=== PATIENT | female | born 1960 | race Caucasian/White ===

== ENCOUNTER 2020-05-01 17:21 | Emergency (ER) | payer SELFPAY ==
[2020-05-01] MEDS ORDERED: methylPREDNISolone SODIUM SUC 125 MG/2 ML VIAL IV ONE (17:29)
[2020-05-01] MEDS ORDERED: FAMOTIDINE IV PREMIX 20 MG in PREMIX BAG 1 BAG IVPB ONE (17:29)
[2020-05-01] MEDS ORDERED: diphenhydrAMINE HCL 50 MG/ML VIAL IV STA (17:29)
--- NOTE | 2020-05-01 17:34 | ED.PDOC ---
History of Present Illness - General Chief Complaint: Bite: Animal/Insect/Human Time Seen by Provider: 05/01/20 17:29 Source: patient, RN notes reviewed, Vital Signs reviewed Additional Information: 59-year-old female, presents to the ER because of, patient has a history of hypertension and she was recently put on lisinopril. Patient denies fever chest pain denies any nausea vomiting denies any other complaints and no other known allergic reaction Patient arrived POV does not be very stressed unable to speak in long complete sentences - History of Present Illness Timing/Duration: getting worse Severity: moderate Improving Factors: nothing Worsening Factors: nothing Associated Symptoms: denies symptoms Allergies/Adverse Reactions: Allergies SIMRAN Inhibitors Allergy (Verified 05/01/20 17:42) Metronidazole Allergy (Verified 08/23/15 11:48) Other Rash and mouth ulcers Home Medications: Ambulatory Orders Cetirizine HCl [ZyrTEC] 10 mg PO DAILY #20 tab 05/01/20 Epinephrine [Epipen 2-Aroldo] 0.3 mg IJ ONCE #1 ml 05/01/20 Lisinopril 20 mg PO DAILY 05/01/20 Methylprednisolone [Medrol Dose Aroldo] 4 mg PO DAILY 6 Days #21 tab 05/01/20 Review of Systems - Review of Systems Constitutional: States: no symptoms reported EENTM: States: no symptoms reported Respiratory: States: no symptoms reported Cardiology: States: no symptoms reported Gastrointestinal/Abdominal: States: no symptoms reported Genitourinary: States: no symptoms reported Musculoskeletal: States: no symptoms reported Skin: States: no symptoms reported Neurological: States: no symptoms reported Endocrine: States: no symptoms reported Hematologic/Lymphatic: States: no symptoms reported Past Medical History (General) - Patient Medical History Hx Seizures: No Hx Stroke: No Hx Dementia: No Hx Asthma: No Hx of COPD: No Hx Cardiac Disorders: No Hx Congestive Heart Failure: No Hx Pacemaker: No Hx Hypertension: Yes Hx Thyroid Disease: No Hx Diabetes: No Hx Gastroesophageal Reflux: No - Hx diverticulitis Hx Renal Disease: No Hx of HIV: No Hx MRSA: Yes - Wound 2016 MRSA Source:: Wound - Vaccination History Hx Tetanus, Diphtheria Vaccination: No Hx Influenza Vaccination: No Hx Pneumococcal Vaccination: No - Social History Hx Tobacco Use: No Hx Chewing Tobacco Use: No Hx Alcohol Use: No Hx Substance Use: No Hx Depression: No Family Medical History - Family History Mother Family History: Unknown Living Status: Hx Family Hypertension: Yes Hx Family Stroke: Yes Physical Exam - Physical Exam General Appearance: Alert, Well Developed, Well Groomed, Well Hydrated, Well Nourished Eye Exam: bilateral normal Ears, Nose, Throat: hearing grossly normal, normal ENT inspection, other - isolated upper lip swellling, no uvular shift, no drooling, and no stridor and no tongue swelling Neck: non-tender, full range of motion Respiratory: chest non-tender, lungs clear, normal breath sounds, no respiratory distress, no accessory muscle use Cardiovascular/Chest: normal peripheral pulses, regular rate, rhythm, no edema, no gallop, no JVD, no murmur Peripheral Pulses: radial,right: 2+, radial,left: 2+ Gastrointestinal/Abdominal: normal bowel sounds, non tender, soft, no organomegaly, no pulsatile mass Back Exam: normal inspection, no CVA tenderness, no vertebral tenderness Extremity: normal range of motion, non-tender, normal inspection, no pedal edema, no calf tenderness 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 Patient was recently put on lisinopril which is a SIMRAN inhibitor, has been known to cause angioedema, patient did not have any stridor no uvular swelling no tongue swelling no respiratory distress no nausea no vomiting, patient feels fine she did receive steroids Benadryl and epinephrine, patient was told that she needs to stop taking the lisinopril and she is to follow with primary care physician for change her to a proper medication. Patient will be discharged home Medrol Aroldo zyrtec and an EpiPen 05/01/20 20:04 05/01/20 20:07 No evidence of respiratory distress prior to discharge 05/01/20 20:08 patient was observed in the ER for longer than 2 hours without evidence of rebound Departure - Departure Clinical Impression: Anaphylaxis Qualifiers: Encounter type: initial encounter Qualified Code(s): T78.2XXA - Anaphylactic shock, unspecified, initial encounter Angioedema Qualifiers: Encounter type: initial encounter Qualified Code(s): T78.3XXA - Angioneurotic edema, initial encounter Disposition: Discharge to Home or Self Care Condition: Fair Departure Forms: ED Discharge - Pt. Copy, ED Discharge - Work Release, Patient Portal Self Enrollment Instructions: DI for Animal Bites, Angioedema (DC) Diet: resume usual diet Referrals: Coy Kowalski MD [Primary Care Provider] - 1-2 Weeks Prescriptions: Epinephrine [Epipen 2-Aroldo] 0.3 mg IJ ONCE #1 ml Methylprednisolone [Medrol Dose Aroldo] 4 mg PO DAILY 6 Days #21 tab Cetirizine HCl [ZyrTEC] 10 mg PO DAILY #20 tab Home Medications: Ambulatory Orders Cetirizine HCl [ZyrTEC] 10 mg PO DAILY #20 tab 05/01/20 Epinephrine [Epipen 2-Aroldo] 0.3 mg IJ ONCE #1 ml 05/01/20 Lisinopril 20 mg PO DAILY 05/01/20 Methylprednisolone [Medrol Dose Aroldo] 4 mg PO DAILY 6 Days #21 tab 05/01/20 Additional Instructions: Or stop taking the lisinopril follow-up with your doctor soon as possible for change in your blood pressure medication
[2020-05-01] MEDS ORDERED: EPINEPHrine HCL AMP 1 MG/ML AMP SUBCU ONE (18:23)
[2020-05-01 21:18] VITALS: BP 146/97; TEMP 97.8; O2SAT 98
== END 2020-05-01 21:13 | disposition home or self-care (01) ==
LOC: ER 17:21
DX: T88.6XXA Anaphylactic reaction due to adverse effect of correct drug or medicament properly administered, initial encounter (principal); T46.4X5A Adverse effect of angiotensin-converting-enzyme inhibitors, initial encounter; T78.3XXA Angioneurotic edema, initial encounter; I10 Essential (primary) hypertension; Z79.899 Other long term (current) drug therapy; Z88.8 Allergy status to other drugs, medicaments and biological substances
CPT/HCPCS: J1200; J2930; J3490

== ENCOUNTER 2020-05-02 00:12 | Emergency (ER) | payer SELFPAY ==
[2020-05-02] MEDS ORDERED: methylPREDNISolone SODIUM SUC 125 MG/2 ML VIAL IV ONE (00:20)
--- NOTE | 2020-05-02 00:24 | ED.PDOC ---
History of Present Illness - General Chief Complaint: General Stated Complaint: lower lip swelling Time Seen by Provider: 05/02/20 00:19 Source: patient, RN notes reviewed, Vital Signs reviewed Additional Information: 59 year old with history of hypertension patient was seen here earlier because of allergy reaction to lisinopril, patient developed angioedema of the upper lip after taking lisinopril. The patient did not have any stridor no drooling no trismus no difficulty distress no tongue swelling. Earlier got epinephrine, steroids, when patient was discharged home her upper leave was getting better she was told to follow-up with her PCP for changing her blood pressure paitent returns to the ER now because of swelling of the lower lip - History of Present Illness Timing/Duration: getting worse Severity: moderate Improving Factors: other - medications Worsening Factors: nothing Associated Symptoms: denies symptoms Allergies/Adverse Reactions: Allergies SIMRAN Inhibitors Allergy (Verified 05/01/20 17:42) Metronidazole Allergy (Verified 08/23/15 11:48) Other Rash and mouth ulcers Home Medications: Ambulatory Orders Cetirizine HCl [ZyrTEC] 10 mg PO DAILY #20 tab 05/01/20 Epinephrine [Epipen 2-Aroldo] 0.3 mg IJ ONCE #1 ml 05/01/20 Lisinopril 20 mg PO DAILY 05/01/20 Methylprednisolone [Medrol Dose Aroldo] 4 mg PO DAILY 6 Days #21 tab 05/01/20 Review of Systems - Review of Systems Constitutional: States: no symptoms reported EENTM: States: no symptoms reported Respiratory: States: no symptoms reported Cardiology: States: no symptoms reported Gastrointestinal/Abdominal: States: no symptoms reported Genitourinary: States: no symptoms reported Musculoskeletal: States: no symptoms reported Skin: States: no symptoms reported Neurological: States: no symptoms reported Endocrine: States: no symptoms reported Hematologic/Lymphatic: States: no symptoms reported Past Medical History (General) - Patient Medical History Hx Seizures: No Hx Stroke: No Hx Dementia: No Hx Asthma: No Hx of COPD: No Hx Cardiac Disorders: No Hx Congestive Heart Failure: No Hx Pacemaker: No Hx Hypertension: Yes Hx Thyroid Disease: No Hx Diabetes: No Hx Gastroesophageal Reflux: No - Hx diverticulitis Hx Renal Disease: No Hx of HIV: No Hx MRSA: Yes - Wound 2016 MRSA Source:: Wound - Vaccination History Hx Tetanus, Diphtheria Vaccination: No Hx Influenza Vaccination: No Hx Pneumococcal Vaccination: No - Social History Hx Tobacco Use: No Hx Chewing Tobacco Use: No Hx Alcohol Use: No Hx Substance Use: No Hx Depression: No Family Medical History - Family History Mother Family History: Unknown Living Status: Hx Family Hypertension: Yes Hx Family Stroke: Yes Physical Exam - Physical Exam General Appearance: Well Developed, Well Groomed, Well Hydrated, Well Nourished Eye Exam: bilateral normal Ears, Nose, Throat: hearing grossly normal, normal ENT inspection, normal pharynx - lower lips swelling , other Neck: non-tender Respiratory: chest non-tender, lungs clear, normal breath sounds, no respiratory distress, no accessory muscle use Cardiovascular/Chest: normal peripheral pulses, regular rate, rhythm, no edema, no gallop, no JVD, no murmur Peripheral Pulses: radial,right: 2+, radial,left: 2+ Gastrointestinal/Abdominal: normal bowel sounds, non tender, soft, no organom egaly, no pulsatile mass Back Exam: normal inspection, no CVA tenderness, no vertebral tenderness Extremity: normal range of motion, non-tender, normal inspection, no pedal edema, no calf tenderness 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 Because even though the upper lip is getting better now she has some swelling in the lower lip. There is no respiratory distress no nausea no vomiting no drooling no trismus no submental mass no tongue swelling no stridor patient is able to speak in long and complete sentences but I decided to admit the patient for observation we will give her another dose of steroids and Benadryl will observe in the hospital. The patient may benefit from additional doses of steroids and observation, and at the moment of admission patient did not show any evidence of respiratory distress. 05/02/20 00:25 Departure - Departure Clinical Impression: Angioedema Qualifiers: Encounter type: sequela Qualified Code(s): T78.3XXS - Angioneurotic edema, sequela Disposition: Admit Patient Referrals: Coy Kowalski MD [Primary Care Provider] - 1-2 Weeks Home Medications: Ambulatory Orders Cetirizine HCl [ZyrTEC] 10 mg PO DAILY #20 tab 05/01/20 Epinephrine [Epipen 2-Aroldo] 0.3 mg IJ ONCE #1 ml 05/01/20 Lisinopril 20 mg PO DAILY 05/01/20 Methylprednisolone [Medrol Dose Aroldo] 4 mg PO DAILY 6 Days #21 tab 05/01/20 Decision To Admit - Decistion To Admit Decision to Admit Reason: Admit from ER Decision to Admit Date: 05/02/20 Decision to Admit Time: 00:28
[2020-05-02] MEDS ORDERED: SODIUM CHLORIDE 0.9% (FLUSH) 10 ML SYG ONE (00:30)
[2020-05-02 04:12] VITALS: TEMP 96.9
[2020-05-02 06:26] VITALS: BP 171/100; O2SAT 99
== END 2020-05-02 06:29 | disposition home or self-care (01) ==
LOC: ER 00:12
DX: T78.3XXD Angioneurotic edema, subsequent encounter (principal); T46.4X5D Adverse effect of angiotensin-converting-enzyme inhibitors, subsequent encounter; I10 Essential (primary) hypertension; Z79.899 Other long term (current) drug therapy; Z88.8 Allergy status to other drugs, medicaments and biological substances
CPT/HCPCS: A4216; J2930